=== PATIENT | male | born 1990 | race Caucasian/White ===

== ENCOUNTER 2018-11-22 20:15 | Emergency (ER) | payer OTHER ==
[~2018-11-22] VITALS: Ht 172.7 cm; Wt 77.1 kg
[2018-11-22 21:52] VITALS: BP 98/58
[2018-11-22] MEDS ORDERED: KEFLEX500 M1 PO (21:54)
== END 2018-11-22 21:53 | disposition home or self-care (01) ==
LOC: M.ERS 20:15
DX: S61.411A Laceration without foreign body of right hand, initial encounter (principal); S51.011A Laceration without foreign body of right elbow, initial encounter; W18.02XA Striking against glass with subsequent fall, initial encounter; Y93.89 Activity, other specified; Y92.89 Other specified places as the place of occurrence of the external cause; Y99.8 Other external cause status